=== PATIENT | male | born 1990 | race Two or more races ===

== ENCOUNTER 2023-05-24 19:33 | Emergency (ER) | payer BC, OTHER ==
[2023-05-24 19:40] VITALS: TEMP 98.4; BMI 96.0
[2023-05-24 21:06] LABS: BASO % 0.8 % (0-2.0); EOS % 1.4 % (0-4.5); HEMATOCRIT 42.6 % (35.4-49); HEMOGLOBIN 14.2 GM/dL (11.7-16.9); LYMPH % 20.9 % (8-40); MCH 24.9 pg (25.7-33.7); MCHC 33.4 g/dl (32.0-35.9); MEAN CELL VOLUME 74.6 fl (80-96); MONO % 7.5 % (3.8-10.2); NEUT % 69.4 % (42.8-82.8); PLATELET COUNT 335 10^3/uL (134-434); RBC 5.71 M/mm3 (4.00-5.60); RDW 14.1 % (11.9-15.9)
[2023-05-24 21:12] LABS: EPI CELLS 13 /uL (0-25.1); HYALINE CASTS 2 /uL (0-3.1); PH,URINE 5.5 (5.0-8.0); URINE APPEARANCE TURBID; URINE BACTERIA >9,000 /uL (0-1359); URINE BILIRUBIN NEGATIVE (NEGATIVE); URINE COLOR YELLOW; URINE GLUCOSE (UA) NEGATIVE (NEGATIVE); URINE KETONE NEGATIVE (NEGATIVE); URINE LEUK ESTERASE 3+ (NEGATIVE); URINE NITRITE POSITIVE (NEGATIVE); URINE PROTEIN 2+ (NEGATIVE); URINE UROBILINOGEN 0.2 mg/dL (0.2-1.0); URINE WBC 4263 /uL (0-25.8)
[2023-05-24 21:14] LABS: POTASSIUM 4.6 mmol/L (3.5-5.1)
[2023-05-24 21:16] LABS: CALCIUM 8.8 mg/dL (8.5-10.1)
[2023-05-24 21:17] LABS: ALBUMIN 3.8 g/dl (3.4-5.0)
[2023-05-24 21:19] LABS: CREATININE 1.2 mg/dL (0.55-1.3)
[2023-05-24 21:21] LABS: BILIRUBIN,TOTAL 0.6 mg/dL (0.2-1); TOT PROT 7.8 g/dl (6.4-8.2)
[2023-05-24] MEDS ORDERED: CEFTRIAXONE 1 MG in DEXTROSE 5%-WATER - 50 ML IVPB ONE (21:38)
[2023-05-24] MEDS ORDERED: CEFTRIAXONE 1 GM/50 ML BAG ONE (21:59)
[2023-05-24] MEDS ORDERED: CEFTRIAXONE 1,000 MG in DEXTROSE 5%-WATER - 50 ML IVPB ONE (22:00)
[2023-05-24 22:49] VITALS: BP 155/100; PULSE 92; RESP 13
[2023-05-24 23:10] LABS: URINE RBC 255.1 /uL (0-23.9); YEAST NONE SEEN (NEGATIVE)
[2023-05-24] MEDS ORDERED: SODIUM CHLORIDE 0.9% 500 ML INFUS.BAG IV ONE (23:16)
== END 2023-05-25 00:48 | disposition home or self-care (01) ==
LOC: JER 19:33
DX: R10.30 Lower abdominal pain, unspecified (principal); N39.0 Urinary tract infection, site not specified; R00.0 Tachycardia, unspecified; N12 Tubulo-interstitial nephritis, not specified as acute or chronic
CPT/HCPCS: 36415; 71046-TC-FY; 74177-TC; 80053; 81003; 84439; 84443; 84484; 85025; 87086; 87186; 93005; 93010; 99285-25; Q9967